=== PATIENT | male | born 1960 | race Caucasian/White ===

== ENCOUNTER 2025-01-10 02:27 | Emergency (ER) | payer MEDICARE, OTHER, SELFPAY ==
[2025-01-10 02:29] VITALS: BP 144/104
[2025-01-10 03:00] VITALS: BP 144/98
--- NOTE | 2025-01-10 03:11 | ED.GENMED ---
History of Present Illness
General
Chief Complaint: Head Injury
Source: patient
Exam Limitations: none
Time Seen by Provider: 01/10/25 02:53
History of Present Illness
History of Present Illness:
See MDM
Past History
Past History
ED Past Medical History: HTN, Hypercholesterolemia and NIDDM; Negative Asthma
ED Past Surgical History: Orthopedic (right clavicular fracture repair)
Social History
Tobacco: Former smoker
Alcohol: Occasional
Personal:
Living: with family
Family History
Family History: Other (reviewed and noncontributory)
Phy Exam
Physical Exam
Physical Exam:
See MDM
Course
Orders/Labs/Results
Orders:
Orders
01/10/25 03:01
CT Head W/o Iv Contrast Urgent
Comment:
Reason For Exam: fall, left forehead injury, headache
Vital Signs
Initial and Last Documented VS:
Initial Vital Signs
Temp Pulse Resp BP Pulse Ox
97.5 F 58 20 144/104 96
01/10/25 02:29 01/10/25 02:29 01/10/25 02:29 01/10/25 02:29 01/10/25 02:29
Last Documented Vital Signs
Temp Pulse Resp BP Pulse Ox
97.5 F 73 15 144/98 94
01/10/25 02:29 01/10/25 03:00 01/10/25 03:00 01/10/25 03:00 01/10/25 03:14
Procedures
Laceration Closure
Left Anterior Lateral Forehead:
Status of Wound: clean
Size of Wound in cm: 4
Description of Wound Edges: sharp
Preparation: cleaned with soap & water and cleaned with Betadine
Anesthesia: 1% Lidocaine with epi
Revision/Debridement: routine- no revision
Wound exploration: explored to base- no FB
Type of Closure: single layer closure
Skin Closure Material: 5-0 nylon
Number of sutures: 5
MDM/Problems Addressed
Differential Diagnosis Includes:
Note:
CHIEF COMPLAINT(S)
Laceration to the scalp following a fall.
HISTORY OF PRESENT ILLNESS
The patient is a 64-year-old male with a history of falling while going to the bathroom. The fall occurred after he had been drinking. He sustained a head injury resulting in a laceration on his left scalp. The patient is mildly intoxicated. The
laceration exhibits moderate bleeding and requires stitches for appropriate management.
PHYSICAL EXAM
General: Alert, no acute distress. Appears intoxicated
Skin: Warm, dry. 4 cm laceration to left anterior lateral forehead
Head: Normocephalic, atraumatic
Neck: Appears supple, trachea midline. No neck tenderness
Eyes, Ears, Nose, Mouth, and Throat: Moist mucous membranes
Cardiovascular: No signs of cyanosis
Respiratory: Respirations are non-labored.
Abdomen: Non-distended
Musculoskeletal: No deformities
Neurological: No focal neurological deficit observed.
Psychiatric: Cooperative, appropriate mood and affect.
PLAN
The patient will undergo a computed tomography (CT) scan of his head to assess for any intracranial injury due to his intoxicated status with a head injury. The laceration on the scalp will be sutured.
DIFFERENTIAL DIAGNOSIS
- The Differential Diagnosis includes, in no particular order and is not limited to:
- Scalp laceration
- Intracranial hemorrhage
- Concussion
- Traumatic brain injury
- Subdural hematoma
- Epidural hematoma
- Skull fracture
- Alcohol intoxication
- Mechanical fall
- Vertigo
INDEPENDENT REVIEW OF LABS AND INTERPRETATION OF TESTS
- My independent interpretation of the CT scan of the head is pending, and will be performed to rule out any acute intracranial pathology due to the head injury in conjunction with intoxication.
MEDICAL DECISION MAKING
- Complexity of Data Reviewed: Chronic conditions affecting care related to alcohol intoxication and head trauma.
- Differential Diagnosis list: As mentioned in the differential diagnosis section.
- Data:
- Category 1: Tests and documents
- A CT scan of the head to evaluate potential intracranial injury.
- Category 2: Assessment requiring an independent historian(s): None mentioned.
- Category 3: Discussion of management or test interpretation: None mentioned.
- Risk:
- Consideration of Admission/Observation: Escalation of care including admission/observation was considered given the complexity and risk of the patients presenting complaint, exam findings, and/or underlying comorbidities. However, ultimately, I
feel the patient is safe for outpatient management with close follow-up. Reasoning: Work-up reassuring, does not reveal any acute life/organ-threatening processes, patients symptoms well controlled upon reevaluation, reexamination is reassuring,
vitals are stable, patient agreeable with discharge, reliable for follow-up.
DIAGNOSIS
- Scalp laceration: S01.81XA
- Alcohol intoxication: F10.929
SUMMARY OF ENCOUNTER
The patient presented to the emergency department after experiencing a fall, presumably due to his state of intoxication. A physical examination revealed no focal neurological deficits. The patient sustained a scalp laceration, which was treated
with five stitches. Due to the combination of head injury and intoxication, a CT scan of the head was performed to rule out any acute pathology, which returned negative. Both the patient and his , who were present at the bedside, felt
comfortable with the decision to return home. Discharge precautions were discussed.
DISPOSITION
Discharge
ASSESSMENT
Scalp laceration and alcohol intoxication after a fall.
PLAN
The patient has a negative CT head result. Sutures were placed for the scalp laceration. Ensure patient understands return precautions and discharge instructions.
INDEPENDENT REVIEW OF LABS AND INTERPRETATION OF TESTS
My independent interpretation of the CT scan of the head is negative for acute pathology.
PROCEDURES
A laceration on the scalp was repaired with five stitches.
PATIENT EDUCATION AND COUNSELING
Discussed return precautions and signs of complications to monitor at home.
FOLLOW-UP INSTRUCTIONS
Please follow up with your primary care physician or return to the emergency department if there are any concerns or worsening symptoms.
MEDICATION RECONCILIATION
No medications were administered or prescribed during the visit.
MEDICAL DECISION MAKING
- Number and Complexity of Problems Addressed: Chronic conditions affecting care include alcohol intoxication. Differential diagnosis includes scalp laceration, intracranial hemorrhage, concussion, traumatic brain injury, subdural hematoma, epidural
hematoma, skull fracture, alcohol intoxication, mechanical fall, vertigo.
- Data:
- Category 1: A CT scan of the head was ordered and independently interpreted, returning negative for acute pathology.
- Risk: Consideration of Admission/Observation: Escalation of care including admission/observation was considered given the complexity and risk of the patients presenting complaint, exam findings, and/or their underlying comorbidities. However,
ultimately, I feel the patient is safe for outpatient management with close follow-up. Reasoning: Work-up is reassuring, does not reveal any acute life/organ-threatening processes, patients symptoms well controlled upon reevaluation, reexamination
is reassuring, vitals are stable, patient agreeable with discharge, reliable for follow-up.
DIAGNOSIS
- Scalp laceration: S01.81XA
- Alcohol intoxication: F10.929
*Pulse Oximetry
SaO2: 94
Oxygen Mode of Delivery: Room air
Patient hypoxic: no
*Critical Care Note
Total Time (30-74mins, 75-104mins- exclusive of procedures): Not Applicable
ED Attending Note
-
Portions of this chart may have been created with voice recognition software.� Occasional wrong word or��sound alike� substitutions may have occurred due to the inherent limitations of voice recognition software.
Discharge Plan
Departure
Patient Disposition: Home (Routine Discharge)
Date of Disposition: 01/10/25
Time of Disposition: 04:29
Patient with high blood pressure during this ER visit?: Yes
Discharge Problem:
Laceration of scalp
Instructions: Laceration Repair With Stitches (DC), BLOOD PRESSURE
Prescriptions:
No Action
enalapril maleate 10 MG tablet
10 mg PO DAILY
Aspirin 325 MG Tablet
325 mg PO DAILY
metformin 500 MG tablet extended release 24 hr
500 mg PO DAILY
atorvastatin 40 MG tablet
40 mg PO QPM Qty: 30 0RF
Activity Restrictions/Additional Instructions:
Keep wound clean and dry, change dressing if it becomes soiled or wet. Watch for signs of infection: fever over 100.5', increasing pain, red streaks around wound, swelling, drainage of pus, or bad smell. If any of these happen, return to ED
promptly. Return to ED or make an appointment with your doctor to have the 5 sutures removed in 7 days. All wounds may scar, however you may reduce the appearance of scarring by avoiding sun exposure to the scar and applying skin moisturizer with
spf protection to the scar once the wound is healed.
Interventions
Interventions:
*Risk Screen - Suicide Last Done: 01/10/25 03:00
*Neglect/Abuse Screening Last Done: 01/10/25 03:01
ED-Musculoskeletal Assessment Last Done: 01/10/25 02:56
ED- Neurological Assessment Last Done: 01/10/25 02:56
ED-Skin Assessment Last Done: 01/10/25 02:56
Discharge Date and Time
Print Language: BENINESE
[2025-01-10 04:59] VITALS: BP 128/88
== END 2025-01-10 05:02 | disposition home or self-care (01) ==
LOC: EMR 02:27
PROVIDERS: EMERGENCY PHYSICIAN Student in an Organized Health Care Education/Training Program
DX: S01.01XA Laceration without foreign body of scalp, initial encounter (principal); W19.XXXA Unspecified fall, initial encounter; F10.129 Alcohol abuse with intoxication, unspecified; Y90.9 Presence of alcohol in blood, level not specified; E11.9 Type 2 diabetes mellitus without complications; E78.00 Pure hypercholesterolemia, unspecified; I10 Essential (primary) hypertension; Z87.891 Personal history of nicotine dependence
CPT/HCPCS: 12002; 99284; 70450